=== PATIENT | male | born 1990 | race Caucasian/White ===

== ENCOUNTER 2018-02-03 00:11 | Day surgery (SDC) | payer OTHER ==
[~2018-02-03] VITALS: Ht 177.8 cm; Wt 94.8 kg
[~2018-02-03 00:11] MED LIST: OXYC-823 PO
[2018-02-03] MEDS ORDERED: ceFAZolin(*) 2GM/D5W 50ML 50 ML IVPB ONE (05:24)
[2018-02-03] MEDS ORDERED: LIDOCAINE/SOD BICARB 8.4% SYR ID ONE (06:00)
[2018-02-03] MEDS ORDERED: MIDAZOLAM 2 MG/2 ML VIAL IVP PRN (06:00)
[2018-02-03] MEDS ORDERED: NORMOSOL R SOLN(*) 1000 ML BAG 1,000 ML IV PRN (06:00)
[2018-02-03] MEDS ORDERED: FAMOTIDINE 20 MG TAB PO ONE (06:00)
[2018-02-03] MEDS ORDERED: ROPIVACAINE 0.2% 20 ML VIAL ONE (06:35)
[2018-02-03 06:43] VITALS: BP 148/85
[2018-02-03] MEDS ORDERED: ACETAMINOPHEN(*)1000 MG/100 ML 100 ML IVPB ONE (07:57)
[2018-02-03] MEDS ORDERED: ROPIVACAINE 0.2% 400 MG/200ML 250 ML CONINFUS ONE (08:00)
[2018-02-03] MEDS ORDERED: fentaNYL CITR 100 MCG/2 ML AMP ONE (09:20)
[2018-02-03] MEDS ORDERED: KETOROLAC 30 MG/ML VIAL ONE (09:27)
--- NOTE | 2018-02-03 10:14 | OPERATIVE REPORT 1 ---
EVENT DATE: February 03, 2018 SURGEON: Malcolm De La Rosa MD ANESTHESIOLOGIST: Misael Brady MD ANESTHESIA: General PREOPERATIVE DIAGNOSIS First metatarsal fracture with Lisfranc fracture dislocation. POSTOPERATIVE DIAGNOSIS First metatarsal fracture with Lisfranc fracture dislocation. PROCEDURES PERFORMED 1. Open reduction, internal fixation, first metatarsal. 2. Open reduction, internal fixation, second metatarsal. 3. Open reduction, internal fixation of the mid foot. ESTIMATED BLOOD LOSS Minimal. FLUID Minimal. DESCRIPTION OF PROCEDURE The patient was brought to the operating room and placed in the supine position. A bump was placed under right hip. His right lower extremity was prepped and draped in the normal sterile fashion using Prevail. Sterile stockinettes, sterile U-drape, and sterile extremity drape were placed over the lower extremities. Stockinette was incised from above the knee and held with Coban. Esmarch was then used to exsanguinate the lower extremity, and the tourniquet was turned up to 300 mmHg. The first incision was made directly over the first ray. Skin was incised with a 15 blade down to subcutaneous tissue. Subcutaneous tissue was bluntly dissected down to the extensor tendons. Extensor tendons were pushed out of the way, and the fracture was identified. [place] and [place] were then used to free up the fracture site. Once that was freed, I was able to put it back into good position using two- point reduction clamp and a K-wire to hold it. At this point, I then brought fluoroscopy in. AP and lateral were taken and found to have excellent reduction and good length of the first MTP joint of the first metatarsal. I then placed a five-hole Mini Fragment plate, placed screws proximal and distal, and then an interfracture lag screw without any difficulty and good compression. Fluoroscopy was brought in, made sure we had good placement of the screws and plate and reduction of the metatarsal which were in anatomic position. At this point, I made a second incision just about 2 to 3 cm laterally to the prior incision over the second TMT joint. Skin was incised with a 15 blade down to subcutaneous tissue. Subcutaneous tissue was bluntly dissected down to the base of the second metatarsal. At this point, found to have multiple comminution at the base of the second with one dorsal large piece. I was able to reduce this easily with the shaft and then place a 2.7 screw across it, getting a lag which was in good position. The base of it, though, had to be removed due to its severe comminution. At this point, we found a very unstable Lisfranc joint. We placed a two-point reduction clamp across it to hold it in position. At this point, I then placed a second 2.7 screw across it just to hold it in position to secure the Lisfranc joint. Visually looking at it, it was perfect reduction on fluoroscopy. There seems to be some comminution at the second TMT joint, but yet I think we had a good reduction again. Final x-rays were taken, AP and lateral, found to have excellent placement of screws and good alignment of the joints. Closed using 3- 0 Monocryl and rosie. There was a very large eschar on the dorsal aspect of the foot which looks to be almost full thickness. We have left it. We are going to do dressing changes to this in two weeks. Most likely, he is going to need a VAC. I will see him back in two weeks' time for reevaluation. BLAKE
[2018-02-03 10:52] VITALS: BP 140/88
[2018-02-03] MEDS ORDERED: APAP/HYDROCODONE 325/10 TAB PO ONE (11:00)
[2018-02-03 11:08] VITALS: BP 140/89
[2018-02-03 11:25] VITALS: BP 135/84
[2018-02-04] MEDS ORDERED: ceFAZolin(*) 2GM/D5W 50ML 50 ML IVPB ONE (06:00)
== END 2018-02-03 10:50 | disposition home or self-care (01) ==
LOC: OR 00:11
PROVIDERS: ATTEND Orthopaedic Surgery
DX: S92.311A Displaced fracture of first metatarsal bone, right foot, initial encounter for closed fracture (principal)
CPT/HCPCS: 28485; 76000; 76942; C1713; J0131; J1100; J2001; J2250; J2405; J2704; J2795; J3010; J3490